=== PATIENT | female | born 1995 | race Caucasian/White ===

== ENCOUNTER 2021-07-08 13:03 | Inpatient (IN) | payer MEDICAID ==
[~2021-07-08] VITALS: Ht 165.1 cm; Wt 86.6 kg
[2021-07-08 13:44] LABS: Basophils # (auto) 0 10 ^3/uL (0-0.2); Basophils % (auto) 0.2 % (0.0-2.0); Eosinophils # (auto) 0.1 10 ^3/uL (0-0.8); Hematocrit 32.8 % (36.0-46.0); Hemoglobin 11.2 g/dL (12.2-16.2); Lymphocytes # (auto) 0.9 10 ^3/uL (0.4-5.4); Lymphocytes % (auto) 8.7 % (10.0-50.0); Mean Corpuscular Hemoglobin 28.7 pg (28.0-32.0); Mean Corpuscular Hgb Conc. 34.3 g/dL (32.0-36.0); Mean Corpuscular Volume 83.5 fL (80.0-100.0); Monocytes # (auto) 0.5 10 ^3/uL (0-1.3); Monocytes % (auto) 4.4 % (0.0-12.0); Neutrophils # (auto) 9.1 10 ^3/uL (1.6-8.6); Neutrophils % (auto) 85.7 % (37.0-80.0); Red Blood Cells 3.92 10^6/uL (4.0-5.20); Red Cell Distribution Width 13.8 % (11.8-14.3); White Blood Cell 10.7 10^3/uL (4.4-10.8)
[2021-07-08 16:45] LABS: Albumin 3.5 g/dL (3.4-5.0); Potassium 3.8 mmol/L (3.5-5.1)
[2021-07-08 16:49] LABS: Bilirubin, Total 0.6 mg/dL (0.2-1.0); Total Protein 6.8 g/dL (6.4-8.2)
[2021-07-08] MEDS ORDERED: NITROGLYCERIN 0.4 MG SL TAB SL PRN ×2 (19:00→21:45)
[2021-07-08] MEDS ORDERED: MORPHINE SULFATE INJECTION 2 MG/ML SYRG IV PRN ×2 (19:00→21:45)
[2021-07-08] MEDS ORDERED: MEPERIDINE HCL (50 MG/ML) 1 ML VIAL ONE (19:53)
[2021-07-08] MEDS ORDERED: fentaNYL CITRATE 100 MCG/2 ML VL ONE (19:53)
[2021-07-08] MEDS ORDERED: MIDAZOLAM HCL 2MG/2ML 2ml VIAL (1mg/ml) ONE (19:53)
[2021-07-08] MEDS ORDERED: CLINDAMYCIN 600MG IV 50 ML IV ONE (20:00)
[2021-07-08] MEDS ORDERED: PROPOFOL 10 MG/ML 20 ML IV ONE (20:09)
[2021-07-08] MEDS ORDERED: DexAMETHasone SOD PHOS 10MG/1ML VIAL INJ ONE (20:09)
[2021-07-08] MEDS ORDERED: METHYLENE BLUE 0.5% 5MG/ML 10ml AMP IV ONE (20:12)
[2021-07-08] MEDS ORDERED: VASOPRESSIN 20 UNIT/ML ONE (20:14)
[2021-07-08] MEDS ORDERED: METOCLOPRAMIDE HCL 5MG/ml INJ 2ml VIAL ONE (20:41)
[2021-07-08] MEDS ORDERED: MORPHINE SULFATE 4 MG/ML SYR/VIAL IV PRN ×2 (20:45→21:45)
[2021-07-08] MEDS ORDERED: ePHEDrine SULFATE 50 MG/ML AMP IV PRN (20:45)
[2021-07-08] MEDS ORDERED: HYDROmorphone HCL 2 MG/ML VL IV PRN (20:45)
[2021-07-08] MEDS ORDERED: ONDANSETRON HCL 4 MG/2 ML VIAL IV PRN ×2 (20:45→21:45)
[2021-07-08] MEDS ORDERED: MIDAZOLAM HCL 2MG/2ML 2ml VIAL (1mg/ml) IV PRN (20:45)
[2021-07-08] MEDS ORDERED: fentaNYL CITRATE 100 MCG/2 ML VL IV PRN (20:45)
[2021-07-08] MEDS ORDERED: LABETALOL HCL 5 MG/ML 4ML SYRINGE IV PRN (20:45)
[2021-07-08] MEDS ORDERED: LIDOCAINE 1% HCL (LOCAL ANESTH.) INJ 20ML MDV ONE (20:55)
[2021-07-08] MEDS ORDERED: GLYCOPYRROLATE 0.2 MG/ML 1ML VIAL ONE (21:07)
[2021-07-08] MEDS ORDERED: NEOSTIGMINE 1 MG/ML INJ (10mg/10ML VIAL) ONE (21:07)
[2021-07-08] MEDS ORDERED: ACETAMINOPHEN 500 MG TAB PO PRN (21:45)
[2021-07-08] MEDS: ACETAMINOPHEN IV 100 ML IV ONE (21:45)
[2021-07-08] MEDS ORDERED: CLINDAMYCIN 900MG IV 50 ML IV ONE (21:45)
[2021-07-08] MEDS: SODIUM CHLORIDE 0.9% 1,000 ML IV SCH (21:45)
[2021-07-08 23:03] LABS: Basophils # (auto) 0 10 ^3/uL (0-0.2); Basophils % (auto) 0.1 % (0.0-2.0); Eosinophils # (auto) 0 10 ^3/uL (0-0.8); Eosinophils % (auto) 0.3 % (0.0-7.0); Hematocrit 27.6 % (36.0-46.0); Hemoglobin 9.5 g/dL (12.2-16.2); Lymphocytes # (auto) 0.4 10 ^3/uL (0.4-5.4); Lymphocytes % (auto) 4.3 % (10.0-50.0); Mean Corpuscular Hemoglobin 28.8 pg (28.0-32.0); Mean Corpuscular Hgb Conc. 34.3 g/dL (32.0-36.0); Mean Corpuscular Volume 83.9 fL (80.0-100.0); Monocytes # (auto) 0.2 10 ^3/uL (0-1.3); Monocytes % (auto) 1.7 % (0.0-12.0); Neutrophils # (auto) 9.1 10 ^3/uL (1.6-8.6); Neutrophils % (auto) 93.6 % (37.0-80.0); Red Blood Cells 3.29 10^6/uL (4.0-5.20); Red Cell Distribution Width 13.9 % (11.8-14.3); White Blood Cell 9.8 10^3/uL (4.4-10.8)
[2021-07-08 23:19] VITALS: BP 113/56
[2021-07-09] MEDS ORDERED: LAMO100T44 PO (03:52)
[2021-07-09] MEDS: HYDROcodone-ACET 5/325MG TAB PO PRN ×3 (04:46→13:57)
[2021-07-09 05:00] VITALS: BP 117/63
[2021-07-09] MEDS: SODIUM CHLORIDE 0.9% 1,000 ML IV SCH ×2 (05:24→12:08)
[2021-07-09 05:42] LABS: Basophils # (auto) 0 10 ^3/uL (0-0.2); Eosinophils # (auto) 0 10 ^3/uL (0-0.8); Hematocrit 28.6 % (36.0-46.0); Hemoglobin 9.8 g/dL (12.2-16.2); Lymphocytes # (auto) 0.4 10 ^3/uL (0.4-5.4); Lymphocytes % (auto) 5.8 % (10.0-50.0); Mean Corpuscular Hemoglobin 28.9 pg (28.0-32.0); Mean Corpuscular Hgb Conc. 34.2 g/dL (32.0-36.0); Mean Corpuscular Volume 84.4 fL (80.0-100.0); Monocytes # (auto) 0.2 10 ^3/uL (0-1.3); Monocytes % (auto) 2.2 % (0.0-12.0); Neutrophils # (auto) 6.7 10 ^3/uL (1.6-8.6); Red Blood Cells 3.39 10^6/uL (4.0-5.20); Red Cell Distribution Width 13.8 % (11.8-14.3); White Blood Cell 7.3 10^3/uL (4.4-10.8)
[2021-07-09 08:00] VITALS: BP 110/66
[2021-07-09 08:35] VITALS: BP 110/66
[2021-07-09 12:30] VITALS: BP 107/60
[2021-07-09 14:05] VITALS: BP 110/66
== END 2021-07-09 15:11 | disposition home or self-care (01) | DRG 547 ==
LOC: ER 13:03 → OVERFLOW 18:50 → CENTRAL 22:07
PROVIDERS: ADMIT Student in an Organized Health Care Education/Training Program; ATTEND Student in an Organized Health Care Education/Training Program
PROC: 10D27ZZ Extraction of Products of Conception, Ectopic, Via Natural or Artificial Opening (ICD-10-PCS; 2021-07-08)
PROC: 10D24ZZ Extraction of Products of Conception, Ectopic, Percutaneous Endoscopic Approach (ICD-10-PCS; principal; 2021-07-08 20:02)
PROC: 0UB54ZZ Excision of Right Fallopian Tube, Percutaneous Endoscopic Approach (ICD-10-PCS; 2021-07-08 20:02)
DX: O00.101 Right tubal pregnancy without intrauterine pregnancy (principal); K66.1 Hemoperitoneum; O08.89 Other complications following an ectopic and molar pregnancy; O99.341 Other mental disorders complicating pregnancy, first trimester; Z20.822 Contact with and (suspected) exposure to COVID-19; F31.9 Bipolar disorder, unspecified; F41.9 Anxiety disorder, unspecified; Z3A.09 9 weeks gestation of pregnancy; Z88.0 Allergy status to penicillin; Z88.2 Allergy status to sulfonamides
CPT/HCPCS: 36415; 76805; 76817; 80053; 84702; 85025; 86850; 86900; 86901; 87426; 96365; 96375; G0378; J0131; J1100; J2001; J2250; J2405; J2704; J3490